=== PATIENT | male | born 1960 | race Caucasian/White ===

== ENCOUNTER 2020-10-25 00:08 | Observation (INO) ==
[2020-10-25] MEDS ORDERED: Ondansetron 4 MG/2 ML VIAL IVP ONE (00:42)
[2020-10-25] MEDS ORDERED: 0.9 % Sodium Chloride 1,000 ML IVC ONE (00:42)
[2020-10-25] MEDS ORDERED: Isovue-370 500 ML BOTTLE IVP ONE (00:42)
[2020-10-25 04:11] LABS: Eosinophils % 1.4 %; Hemoglobin 14.5 g/dL (12.9-16.9); Immature Granulocytes % 0.2 % (0-4)
[2020-10-25 04:12] LABS: Basophils % 0.2 %; Eosinophils # 0.1 K/mcL (0.0-0.6); Hematocrit 44.9 % (37.5-50.1); Immature Platelets 3.7 % (1.1-6.1); Lymphocytes # 1.3 K/mcL (0.6-4.6); Lymphocytes % 13.4 %; Mean Corpuscular HGB Conc 32.3 g/dL (31.6-35.5); Mean Corpuscular Hemoglobin 30.9 pg (28.0-33.3); Mean Corpuscular Volume 95.7 fL (83.0-100.0); Mean Platelet Volume 10.3 fL (9.4-12.4); Monocytes # 0.8 K/mcL (0.0-1.3); Monocytes % 8.2 %; Platelet Count 139 K/mcL (140-400); Red Blood Count 4.69 M/mcL (4.19-5.50); Red Cell Distribution Width 13.6 % (11.5-14.5); Segmented Neutrophils % 76.6 %; White Blood Count 9.3 K/mcL (4.3-11.1)
[2020-10-25 04:14] LABS: Neutrophils # 7.1 K/mcL (1.6-8.9)
[2020-10-25] MEDS ORDERED: Ondansetron 4 MG/2 ML VIAL IVP PRN (04:53)
[2020-10-25] MEDS ORDERED: Naloxone 0.4 MG/ML INJ IVP PRN (04:53)
[2020-10-25] MEDS ORDERED: Acetaminophen 325 MG TABLET PO PRN (04:53)
[2020-10-25] MEDS ORDERED: Dextrose Gel 15 GM/37.5 ML TUBE PO PRN ×2 (04:58)
[2020-10-25] MEDS ORDERED: D5% in Water 1,000 ML IVC PRN (04:58)
[2020-10-25] MEDS ORDERED: *HR* Dextrose 50 % in Water (Vial) 50 ML VIAL IVP PRN (04:58)
[2020-10-25 05:36] LABS: Alanine Aminotransferase 21 Units/L (7-52); Albumin/Globulin Ratio 1.4 (1.1-2.2); Alkaline Phosphatase 74 Units/L (34-104); Aspartate Amino Transferase 16 Units/L (13-39); BUN/Creatinine Ratio 19 (6-26); Bilirubin,Total 1.4 mg/dL (0.3-1.0); Blood Urea Nitrogen 18 mg/dL (8-23); Carbon Dioxide 27 mEq/L (23-29); Chloride 106 mEq/L (98-107); Globulin 2.8 g/dL (2.4-3.5); Glucose 95 mg/dL (70-105); Lipase 440 Units/L (11-82); Osmolality,Calculated 292 (280-300); Potassium 3.6 mEq/L (3.5-5.1); Sodium 140 mEq/L (136-145); Total Protein 6.8 g/dL (6.4-8.9); eGFR For African Americans > 60 (> 60); eGFR For Non-African Americans > 60 (> 60)
[2020-10-25] MEDS ORDERED: *HR* LORazepam 2 MG/ML VIAL IVP PRN ×3 (05:48)
[2020-10-25] MEDS ORDERED: Thiamine (B-1) 100 MG TABLET PO SCH (09:00)
[2020-10-25] MEDS ORDERED: Folic Acid 1 MG TABLET PO SCH (09:00)
[2020-10-25] MEDS: Insulin LISPRO 300 UNITS/3 ML VIAL SUBQ SCH ×3 (10:12→17:45)
[2020-10-25] MEDS: metroNIDAZOLE 500 MG TABLET PO SCH ×3 (10:14→20:07)
[2020-10-25] MEDS ORDERED: Thiamine (B-1) 100 MG, Folic Acid 1 MG, MVI, adult with vitamin K 10 ML in 0.9 % Sodi... IVPB SCH (18:00)
[2020-10-25] MEDS ORDERED: Insulin LISPRO 300 UNITS/3 ML VIAL SUBQ SCH (21:00)
[2020-10-26] MEDS ORDERED: traZODone 50 MG TABLET PO PRN (00:23)
[2020-10-26 01:28] LABS: Basophils % 0.5 %; Eosinophils # 0.2 K/mcL (0.0-0.6); Eosinophils % 3.7 %; Hematocrit 42.4 % (37.5-50.1); Hemoglobin 13.8 g/dL (12.9-16.9); Immature Granulocytes % 0.2 % (0-4); Lymphocytes # 1.2 K/mcL (0.6-4.6); Lymphocytes % 20.1 %; Mean Corpuscular HGB Conc 32.5 g/dL (31.6-35.5); Mean Corpuscular Hemoglobin 31.2 pg (28.0-33.3); Mean Corpuscular Volume 95.9 fL (83.0-100.0); Monocytes # 0.5 K/mcL (0.0-1.3); Monocytes % 8.5 %; Platelet Count 154 K/mcL (140-400); Red Blood Count 4.42 M/mcL (4.19-5.50); Red Cell Distribution Width 13.5 % (11.5-14.5)
[2020-10-26 01:33] LABS: BUN/Creatinine Ratio 14 (6-26); Blood Urea Nitrogen 12 mg/dL (8-23); Calcium 8.6 mg/dL (8.6-10.3); Carbon Dioxide 24 mEq/L (23-29); Chloride 102 mEq/L (98-107); Glucose 87 mg/dL (70-105); Osmolality,Calculated 279 (280-300); Potassium 3.7 mEq/L (3.5-5.1); Sodium 135 mEq/L (136-145); eGFR For African Americans > 60 (> 60); eGFR For Non-African Americans > 60 (> 60)
[2020-10-26 06:10] VITALS: BP 133/76
[2020-10-26] MEDS: Insulin LISPRO 300 UNITS/3 ML VIAL SUBQ SCH (08:04)
[2020-10-26] MEDS: metroNIDAZOLE 500 MG TABLET PO SCH (09:19)
== END 2020-10-26 10:28 | disposition home or self-care (01) ==
LOC: EMEROOARM 00:08 → 3ANU 00:08 → SUATTDRO 02:53 → 3ANU 03:01
PROVIDERS: ADMIT Internal Medicine; ATTEND Internal Medicine